=== PATIENT | male | born 2000 | race Caucasian/White ===

== ENCOUNTER 2021-07-23 18:43 | Emergency (ER) | payer OTHER, MEDICAID ==
[~2021-07-23] VITALS: Ht 175.3 cm; Wt 63.6 kg
[2021-07-23 18:49] VITALS: BP 111/53
[2021-07-23] MEDS ORDERED: AMOXICILLIN 8751 TAB PO (19:40)
[2021-07-23 23:20] VITALS: PULSE 78
== END 2021-07-23 20:00 | disposition home or self-care (01) ==
LOC: COL.ER 18:43
DX: S81.852A Open bite, left lower leg, initial encounter (principal); Z23 Encounter for immunization; W54.0XXA Bitten by dog, initial encounter